=== PATIENT | female | born 1940 | race Caucasian/White ===

== ENCOUNTER → 2017-03-29 | Outpatient (REF) | payer MEDICARE ==
[2017-03-29 12:51] LABS: BASO % 0.5 % (0.0-1.0); EOS # 0.1 K/mm3 (0.0-0.50); EOS % 0.9 % (0.0-3.0); LARGE UNSTAINED CELL # 0.1 K/mm3 (0.0-0.4); LARGE UNSTAINED CELL % 1.2 % (0.0-4.0); LYMPH # 2.5 K/mm3 (1.5-4.5); LYMPH % 26.2 % (24.0-44.0); MEAN CORPUSCULAR HEMOGLOBIN 33.4 pg (27.0-33.0); MEAN CORPUSCULAR VOLUME 101.2 fl (80.0-96.0); MONO # 0.4 K/mm3 (0.0-0.8); MONO % 4.1 % (0.0-5.0); NEUTROPHILS % 67.1 % (36.0-66.0); PLATELET COUNT, AUTOMATED 228 k/mm3 (150-450); RED CELL DISTRIBUTION WIDTH 12.9 % (11.5-14.5)
[2017-03-29 13:11] LABS: FOLATE > 24.0 NG/ML (>5.4); VITAMIN B12 LEVEL 1432 PG/ML (247-911)
[2017-03-29 13:20] LABS: ALBUMIN 4.1 GM/DL (3.2-5.2); ALBUMIN/GLOBULIN RATIO 1.28 (1.00-1.93); ALKALINE PHOSPHATASE 60 U/L (45-117); ALT/SGPT 9 U/L (12-78); ANION GAP 10 MEQ/L (8-16); AST/SGOT 22 U/L (15-37); BILIRUBIN,TOTAL 0.5 MG/DL (0.2-1.0); BLOOD UREA NITROGEN 11 MG/DL (7-18); CALCIUM LEVEL 8.5 MG/DL (8.8-10.2); CARBON DIOXIDE LEVEL 28 MEQ/L (21-32); CHLORIDE LEVEL 105 MEQ/L (98-107); GLOMERULAR FILTRATION RATE > 60.0 (>39); GLUCOSE, FASTING 109 MG/DL (83-110); POTASSIUM SERUM 4.2 MEQ/L (3.5-5.1); SODIUM LEVEL 143 MEQ/L (136-145); TOTAL PROTEIN 7.3 GM/DL (6.4-8.2)
[2017-04-02 00:07] LABS: VITAMIN E LEVEL 15.9 mg/L (6.5-21.5)
== END ==
LOC: M LABNEURO 12:12
PROVIDERS: ATTEND Psychiatry & Neurology Neurology
DX: R51 Headache (principal); M54.5 Low back pain

== ENCOUNTER → 2019-03-06 | Outpatient (CLI) | payer MEDICARE ==
--- NOTE | 2019-03-15 01:47 | ECWPNPC ---
PATIENT NAME: NANCY FENTON : 1940 GENDER: FEMALE VISIT DATE: 03/06/2019 DISCHARGE DATE: 03/06/19 1141 VISIT LOCKED DATE TIME: PHYSICIAN: GINA ERNST MD RESOURCE: GINA ERNST MD REASON FOR APPOINTMENT 1. LBP HISTORY OF PRESENT ILLNESS PAIN SCREENING: PT IS A 78 YEAR OLD FEMALE WHO PRESENTS FOR CHRONIC BACK PAIN AND THORACIC PAIN. THE PAIN HAS BEEN ON GOING FOR SEVERAL YEARS. SHE HAS NOT HISTORY OF TRAUMA. TODAY MOST OF HER PAIN IS IN HER LOWER BACK. THE PAIN IS DESCRIBED PULLING AND ACHING. THE PAIN IS WORSE WITH MOVEMENT, WHERE SHE FEELS A PULLING SENSATION IN HER LOWER PAIN. HER PAIN IS 8-9/10 THAT IS MADE WORSE WITH MOVEMENT. SHE HAS TRIED PT IN THE [place]. SHE CURRENTLY USE BENGAY AND PERCOCET TO CONTROL HER PAIN. THERE IS NO RADIATION OF HER SYMPTOMS. SHE ADMITS TO DIFFICULTY WALKING DUE TO HER PAIN AND HISTORY OF PARKINSON.SHE DENIES ANY RESENT ILLNESS. DENIES AN LOSS OF BOWEL BLADDER DYSFUNTION. NO UNEXPLAINED WEIGHT LOSS. PATIENT HAS A COMPLAINT OF ACUTE OR CHRONIC PAIN :YES FALL RISK SCREENING: SCREENING :NO FALLS REPORTED IN THE LAST YEAR CURRENT MEDICATIONS TAKING MULTIVITAMIN ADULTS - TABLET DIRECTED ORALLY TAKING VITAMIN C 500 MG CAPSULE DIRECTED ORALLY TAKING VITAMIN D 1000 UNIT TABLET 1 TABLET ORALLY ONCE A DAY TAKING NORTRIPTYLINE HCL 10 MG CAPSULE 1 CAPSULE ORALLY ONCE A DAY TAKING NORTRIPTYLINE HCL 25 MG CAPSULE 1 CAPSULE ORALLY BEFORE BEDTIME TAKING PRIMIDONE 50 MG TABLET DIRECTED ORALLY TAKING LASIX 40 MG TABLET 1 TABLET ORALLY ONCE A DAY TAKING HYDRALAZINE HCL 10 MG TABLET 1 TABLET WITH FOOD ORALLY FOUR TIMES A DAY TAKING LOSARTAN POTASSIUM 100 MG TABLET 1 TABLET ORALLY ONCE A DAY TAKING ROPINIROLE HCL 2 MG TABLET 1 TABLET 1 TO 3 HOURS BEFORE BEDTIME ORALLY ONCE A DAY TAKING METOPROLOL TARTRATE 100 MG TABLET 1 TABLET WITH FOOD ORALLY TWICE A DAY TAKING WARFARIN SODIUM 5 MG TABLET 1 TABLET ORALLY ONCE A DAY TAKING RANITIDINE HCL 300 MG CAPSULE 1 CAPSULE ORALLY ONCE A DAY TAKING AMLODIPINE BESYLATE 10 MG TABLET 1 TABLET ORALLY ONCE A DAY TAKING ATORVASTATIN CALCIUM 10 MG TABLET 1 TABLET ORALLY ONCE A DAY TAKING CARBIDOPA-LEVODOPA 10-100 MG TABLET 1 TABLET ORALLY THREE TIMES A DAY TAKING NEUPRO 2 MG/24HR PATCH 24 HOUR 1 PATCH TO SKIN TRANSDERMAL ONCE A DAY TAKING TRIHEXYPHENIDYL HCL 2 MG TABLET 1 TABLET ORALLY TWICE A DAY TAKING KLOR-CON 10 10 MEQ TABLET EXTENDED RELEASE 1 TABLET WITH FOOD ORALLY TWICE A DAY MEDICATION LIST REVIEWED AND RECONCILED WITH THE PATIENT PAST MEDICAL HISTORY HTN A FIB PARKINSONISM CHRONIC LBP CHRONIC NECK PAIN ALLERGIES NAPROXEN: RASH - ALLERGY PREVACID: DON'T REMEMBER ENALOPRIL: DON'T REMEMBER NIACIN: DON'T REMEMBER AVELUX: DON'T REMEMBER LANSOPRAZOLE: DON'T REMEMBER PCN, SULFA: DON'T REMEMBER ROCEPHIN: DON'T REMEMBER SURGICAL HISTORY TONSILLECTOMY OVARIAN CYSTS REMOVED APPENDECTOMY HYSTERECTOMY TUMOR ON RIGHT KNEE REMOVED LEFT WRIST FX REPAIR FAMILY HISTORY FATHER: 62 YRS, DIAGNOSED WITH HYPERTENSION, HEART DISEASE MOTHER: 80 YRS, CANCER 2 BROTHER(S) , 2 SISTER(S) . SISTER BRAIN TUMOR @ 23 Y/O. SOCIAL HISTORY GENERAL: TOBACCO USE ARE YOU A:NONSMOKER PAIN CLINIC PFS, CLERGY, PUBLIC HEALTH REFERRALS HAS THE PATIENT BEEN EDUCATED REGARDING HIS/HER PLAN OF CARE?YES HAS THE PATIENT BEEN EDUCATED REGARDING PAIN, THE RISK FOR PAIN, THE IMPORTANCE OF EFFECTIVE PAIN MANAGEMENT, AND THE PAIN ASSESSMENT PROCESS?YES ADVANCE DIRECTIVE ADVANCE DIRECTIVE DISCUSSED WITH PATIENT:YES TAMIKO HONG DAUGHTER [phone] [employer] [id number] YAZDANISM LANGUAGE LANGUAGES SPOKEN:MARSHALLESE LEARNING BARRIERS / SPECIAL NEEDS BARRIERS TO LEARNING?NO HEARING IMPAIRED?NO VISION IMPAIRED?YES :CORRECTIVE LENSES COGNITIVELY IMPAIRED?NO READINESS TO LEARN?YES LEARNING PREFERENCES?NO LEARNING CAPABILITIES PRESENT?YES EMOTIONAL BARRIERS?NO SPECIAL DEVICES?YES :CANE HOSPITALIZATION/MAJOR DIAGNOSTIC PROCEDURE FELL HIT HEAD GOT DIZZY SURGERY REVIEW OF SYSTEMS REVIEWED BY: PROVIDER: . CONSTITUTIONAL: ANY CHANGE IN YOUR MEDICAL CONDITION? NO . CHILLS NO . FEVER NO . INFECTION: DO YOU HAVE NEW INFECTIONS? NO . DO YOU HAVE HISTORY OF MRSA? NO . MUSCULOSKELETAL: ANY NEW PATTERNS OF PAIN OR NUMBNESS? NO . SYTEMIC LUPUS NO . GASTROENTEROLOGY: ANY NEW CHANGE IN BOWEL CONTROL? NO . BARRETTS ESOPHAGUS NO . CIRRHOSIS NO . HEPATITIS NO . LIVER FAILURE NO . ACID REFLUX NO . UNEXPLAINED WEIGHT LOSS NO . GENITOURINARY: ANY NEW CHANGE IN BLADDER CONTROL? YES, FREQUENCY, OFTEN CAN'T MAKE IT TO THE TOILET IN TIME . IS THERE A CHANCE YOU COULD BE ? NO . HEMATOLOGY/LYMPH: DO YOU TAKE ANY BLOOD THINNERS? (FOR EXAMPLE- COUMADIN, PLAVIX, AGGRENOX, PLATEL, PRADAXA, OR XARELTO) YES, WARFARIN . WHEN WAS YOUR LAST DOSE? DATE: TIME: . LOW PLATELET COUNT NO . SICKLE CELL DISEASE NO . VON WILLIEBRANDS NO . FACTOR V LEIDEN NO . THALLASEMIA NO . ANEMIA NO . EASY BRUISING NO . NEUROLOGY: HAVE YOU FALLEN IN THE PAST 12 MONTHS? YES, FELL 02/06/19 FROM DIZZINESS, PT WAS TAKEN TO [facility] FOR OBSERVATION . ANY NEW EXTREMITY NUMBNESS OR WEAKNESS? YES, RIGHT HAD/WRIST WEAKNESS . HEAD INJURY NO . DEMENTIA NO, PARKINSONISM . CEREBRAL PALSY NO . MULTIPLE SCLEROSIS NO . DIZZINESS NO . HEADACHE NO . STROKES NO . VERTIGO NO . CARDIOLOGY: DO YOU HAVE A PACEMAKER OR DEFIBRILLATOR? NO, A-FIB ON WARFARIN . ANGINA NO . HEART ATTACK NO . HEART SURGERY NO . CONGESTIVE HEART FAILURE/FLUID OVERLOAD NO . CHEST PAIN NO . HIGH BLOOD PRESSURE NO . IRREGULAR HEART BEAT NO . RESPIRATORY: HAVE YOU BEEN SICK IN THE PAST WEEK? NO . FEVER NO . FLU LIKE SYMPTOMS? NO . CPAP NO . BYPAP NO . ASTHMA NO . EMPHYSEMA NO . CHRONIC LUNG DISEASES NO . SHORTNESS OF BREATH ON EXERTION NO . COUGH NO . SNORING NO . INTEGUMENTARY: DO YOU HAVE ANY RASHES OR OPEN SORES? NO . ALLERGIC/IMMUNO: ARE YOU ALLERGIC TO IV DYE? NO . ANY NEW ALLERGIES? NO . PSYCHIATRIC: DO YOU HAVE THOUGHTS OF HURTING YOURSELF OR SOMEONE ELSE? NO . ARE YOU ABUSED, NEGLECTED, OR IN AN UNSAFE ENVIRONMENT? NO . ENDOCRINOLOGY: ARE YOU DIABETIC? NO . THYROID DISORDER NO . OTHER: DO YOU NEED ANY PRESCRIPTIONS? YES, TO DISCUSS . IF YES, PLEASE LIST: ____ . ANY NEW PROBLEMS WITH YOUR MEDICATIONS? NO . WHEN DID YOU LAST EAT? ____ . WHEN DID YOU LAST DRINK? ____ . WHAT DID YOU LAST DRINK? ____ . NAME OF PERSON DRIVING YOU HOME? ____ . DO YOU HAVE ANY OTHER QUESTIONS OR CONCERNS NO . VITAL SIGNS WT 179.6 LBS, HT 54 IN, BMI 43.30 INDEX, BP 139/76 MM HG, HR 82 /MIN, RR 18 /MIN, TEMP 97.1 F, OXYGEN SAT % 98%, NA INITIALS AW 1019, REVIEWED BY: EM. EXAMINATION GENERAL EXAMINATION: GENERALNO ACUTE DISTRESS, WELL NOURISHED AND HYDRATED, ELDERLY FEMALE . PSYCHAPPROPRIATE MOOD AND AFFECT . HEENT:HEAD IS ATRAUMATIC, NECK IS SUPPLE, . NECK:NECK IS SUPPLE. LUNGS:CLEAR TO AUSCULTATION BILATERALLY, NO WHEEZES, RHONCHI, RALES . HEART:NO MURMURS, REGULAR RATE AND RHYTHM . MUSCULOSKELETAL:MUSCLE STRENGTH TESTING 5/5 BILATERAL, TENDERNESS NOTED ON MIDDLE OF PATIENT THORACIC SPINE, TENDERNESS IS ALSO NOTED IN PATIENT LUMBAR SPINE (WORSE THAN HER THORACIC PAIN), NO DEFORMITIES, NO BRUISING, NO SIGNS OF TRAUMA, SHUFFLING GAIT . EXTREMITIES:NO CLUBBING, NO EDEMA, NO CYANOSIS . 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 THERE ARE CONSPICUOS OSTEOARTHRITIC CHANGES IN THE FACET JOINTS AT MULTIPLE LEVELS PARTICULARLY ON THE LEFT AT L5-S1 AND BILATERALLY AT L3-4 ADN L4-5. THERE IS NO INTERVAL CHANGE WHEN COMPARED WITH THE PRIOR STUDY. CT L-SPINE WITHOUT CONTRAST (12/26/18)NO ACUTE FRACTURE OD SUBLUXATION1.2 CM LYTIC CHANGE LEFT ASPECT L5 VERTEBRAL BODY, THIS MAY BE DUE TO A SMALL CYST BUT NEOPLASTIC CHANGE IS NOT ENTIRELY EXCLUDED GIVEN PATIENTS AGE. FUSIFORM ANEURYSMAL CHANGE OF THE AORTA TO 2.4 CM NOTED WITH MODERATE ATHEROSCLEROSISXRAY LUMBAR SPINE (07/03/2014)OSTEOPENIA. NO ACUTE FRACTURE, SUBLUXATION, OR DESTRUCTIVE OSSEOUS LESION IDENTIFIED. THERE ARE MULTIPLE LEVELS OF MILD TO MODERATE OSTEOARTHRITIS. SEVERE FACET ARTHROPATHY IS PRESENT BILATERALLY AT L3-4, L4-5 AND L5-S1. ATHEROSCLEROTIC VASCULAT CALCIFICATIONS ARE PRESENT. ASSESSMENTS MYALGIA - M79.10 (PRIMARY) LOW BACK PAIN - M54.5 OTHER CHRONIC PAIN - G89.29 THORACIC SPINE PAIN - M54.6 TREATMENT MYALGIA CLINICAL NOTES: WE DISCUSSED SEVERAL ISSUES WITH MS. FENTON PAIN MANAGEMENT CASE. WE WILL BEGIN WITH TRIGGER POINT INJECTION AT THE MID LUMBAR AREA. IF THIS FAILS TO AID PATIENT, I WILL CONSIDER FACET BLOCKADE. PATIENT IS CURRENTLY ON COUMADIN AND WILL NEED CLEARANCE TO DISCONTINUE IT PRIOR TO PROCEDURE. THE PATIENT WILL FOLLOW UP WITH IN A FEW DAYS TO WEEKS FOR TRIGGER POINT INJECTION PENDING INSURANCE CLEARANCE. INSTRUCTIONS WERE GIVEN, QUESTIONS WERE ANSWERED, PATIENT REPORTS UNDERSTANDING AND AGREES WITH THE PLAN.. THORACIC SPINE PAIN CLINICAL NOTES: WILL CONSIDER THORACIC MRI IF THIS CONTINUES TO BOTHER PT. . OTHERS NOTES: SACROILIAC JOINT PAIN MATERIAL WAS PRINTED. PROCEDURES 03/06/19 @1115 TRIGGER INJECTION AND SACROILLIAC JOINT INJECTION REVIEWED WITH PT. AND COPY GIVEN TO PT. PT. VERBALIZES AN UNDERSTANDING ARLENE JONES. PROCEDURE CODES FA211 ESTABILISHED PATIENT [facility] FACILITY CHARGE G8427 CURRENT MEDS W/DOSAGES DOCUMENTED G8730 PAIN ASSESS POS TOOL F/U PLAN DOC DISPOSITION & COMMUNICATION ELECTRONICALLY SIGNED BY GINA ERNST MD, MD ON 03/14/2019 AT 12:48 PM EDT DISCLAIMER : THIS IS A VISIT SUMMARY EXTRACTED FROM THE [employer] CHART. IT IS NOT A COPY OF THE [employer] PROGRESS NOTE. MTDD
== END ==
LOC: M PAIN 10:15
PROVIDERS: ATTEND Anesthesiology
DX: M79.10 Myalgia, unspecified site (principal); M54.5 Low back pain; G89.29 Other chronic pain; M54.6 Pain in thoracic spine; I10 Essential (primary) hypertension; I48.91 Unspecified atrial fibrillation; Z88.0 Allergy status to penicillin; Z88.1 Allergy status to other antibiotic agents; Z88.2 Allergy status to sulfonamides; Z88.6 Allergy status to analgesic agent; Z88.8 Allergy status to other drugs, medicaments and biological substances; Z79.01 Long term (current) use of anticoagulants; E66.01 Morbid (severe) obesity due to excess calories; Z68.41 Body mass index [BMI] 40.0-44.9, adult; Z79.899 Other long term (current) drug therapy

== ENCOUNTER → 2019-05-09 | Outpatient (CLI) | payer MEDICARE ==
[~2019-05-09] MED LIST: BUPIVACAINE HCL 0.25% 10 ML VIAL As Ordered ONE; BUPIVACAINE HCL 0.25% 30 ML VIAL As Ordered ONE; NORCO, ANEXSIA 5/325MG TABLET (HYDROcodone/ACETAMINOPHEN) As Ordered ONE; TRIAMCINOLONE ACETONIDE SUSP 40 MG/ML VIAL (J3301) As Ordered ONE
== END ==
LOC: M PAIN 14:15
PROVIDERS: ATTEND Anesthesiology
DX: M79.18 Myalgia, other site (principal); I10 Essential (primary) hypertension; I48.91 Unspecified atrial fibrillation; G20 Parkinson's disease; M54.5 Low back pain; M54.2 Cervicalgia; Z90.49 Acquired absence of other specified parts of digestive tract; Z87.81 Personal history of (healed) traumatic fracture; Z90.710 Acquired absence of both cervix and uterus; Z79.01 Long term (current) use of anticoagulants; Z88.6 Allergy status to analgesic agent; Z88.0 Allergy status to penicillin; Z88.2 Allergy status to sulfonamides; Z88.1 Allergy status to other antibiotic agents; Z88.8 Allergy status to other drugs, medicaments and biological substances
CPT/HCPCS: 20553; J3301

== ENCOUNTER → 2019-05-29 | Outpatient (CLI) | payer MEDICARE ==
--- NOTE | 2019-05-29 23:51 | ECWPNPC ---
PATIENT NAME: NANCY FENTON : 1940 GENDER: FEMALE VISIT DATE: 05/29/2019 DISCHARGE DATE: 05/29/19 1150 VISIT LOCKED DATE TIME: PHYSICIAN: DWIGHT ASHLEY RESOURCE: DWIGHT ASHLEY REASON FOR APPOINTMENT 1. POST TPI HISTORY OF PRESENT ILLNESS HISTORY OF PRESENT ILLNESS: HERE FOR F/U POST PROCEDURE .HAD TPI BILAT. LUMBAR AND THORACIC ON 05/09/19.REPORTING NO IMPROVEMENT POST PROCEDURE.CHIEF AREA OF PAIN IS ACROSS LOW BACK.PAIN RADIATES TO THORACIC REGION.REVIEWED MRI L/S SPINE AND THIS IS SHOWING L/S SPONDYLOSIS.RATING PAIN VAS 8/10.DISCUSSED TREATMENT OPTIONS. PAIN THE PATIENT DESCRIBES THE PAIN... FALL RISK SCREENING: SCREENING :NO FALLS REPORTED IN THE LAST YEAR CURRENT MEDICATIONS TAKING MULTIVITAMIN ADULTS - TABLET DIRECTED ORALLY TAKING VITAMIN C 500 MG CAPSULE DIRECTED ORALLY TAKING VITAMIN D 1000 UNIT TABLET 1 TABLET ORALLY ONCE A DAY TAKING NORTRIPTYLINE HCL 10 MG CAPSULE 1 CAPSULE ORALLY ONCE A DAY TAKING NORTRIPTYLINE HCL 25 MG CAPSULE 1 CAPSULE ORALLY BEFORE BEDTIME TAKING PRIMIDONE 50 MG TABLET DIRECTED ORALLY TAKING LASIX 40 MG TABLET 1 TABLET ORALLY ONCE A DAY TAKING HYDRALAZINE HCL 10 MG TABLET 1 TABLET WITH FOOD ORALLY FOUR TIMES A DAY TAKING LOSARTAN POTASSIUM 100 MG TABLET 1 TABLET ORALLY ONCE A DAY TAKING ROPINIROLE HCL 2 MG TABLET 1 TABLET 1 TO 3 HOURS BEFORE BEDTIME ORALLY ONCE A DAY TAKING METOPROLOL TARTRATE 100 MG TABLET 1 TABLET WITH FOOD ORALLY TWICE A DAY TAKING WARFARIN SODIUM 5 MG TABLET 1 TABLET ORALLY ONCE A DAY TAKING RANITIDINE HCL 300 MG CAPSULE 1 CAPSULE ORALLY ONCE A DAY TAKING AMLODIPINE BESYLATE 10 MG TABLET 1 TABLET ORALLY ONCE A DAY TAKING ATORVASTATIN CALCIUM 10 MG TABLET 1 TABLET ORALLY ONCE A DAY TAKING CARBIDOPA-LEVODOPA 10-100 MG TABLET 1 TABLET ORALLY FOUR TIMES DAILY TAKING KLOR-CON 10 10 MEQ TABLET EXTENDED RELEASE 1 TABLET WITH FOOD ORALLY TWICE A DAY NOT-TAKING NEUPRO 2 MG/24HR PATCH 24 HOUR 1 PATCH TO SKIN TRANSDERMAL ONCE A DAY, NOTES: HAS NOT BEEN USING NOT-TAKING TRIHEXYPHENIDYL HCL 2 MG TABLET 1 TABLET ORALLY TWICE A DAY MEDICATION LIST REVIEWED AND RECONCILED WITH THE PATIENT PAST MEDICAL HISTORY HTN A FIB PARKINSONISM CHRONIC LBP CHRONIC NECK PAIN ALLERGIES NAPROXEN: RASH - ALLERGY PREVACID: DON'T REMEMBER ENALOPRIL: DON'T REMEMBER NIACIN: DON'T REMEMBER AVELUX: DON'T REMEMBER LANSOPRAZOLE: DON'T REMEMBER PCN, SULFA: DON'T REMEMBER ROCEPHIN: DON'T REMEMBER SURGICAL HISTORY TONSILLECTOMY OVARIAN CYSTS REMOVED APPENDECTOMY HYSTERECTOMY TUMOR ON RIGHT KNEE REMOVED LEFT WRIST FX REPAIR FAMILY HISTORY FATHER: 62 YRS, DIAGNOSED WITH HYPERTENSION, UNSPECIFIED HEART DISEASE MOTHER: 80 YRS, OTHER MALIGNANT NEOPLASM OF UNSPECIFIED SITE 2 BROTHER(S) , 2 SISTER(S) . SISTER BRAIN TUMOR @ 23 Y/O. SOCIAL HISTORY GENERAL: TOBACCO USE ARE YOU A:NONSMOKER PAIN CLINIC PFS, CLERGY, PUBLIC HEALTH REFERRALS HAS THE PATIENT BEEN EDUCATED REGARDING HIS/HER PLAN OF CARE?YES HAS THE PATIENT BEEN EDUCATED REGARDING PAIN, THE RISK FOR PAIN, THE IMPORTANCE OF EFFECTIVE PAIN MANAGEMENT, AND THE PAIN ASSESSMENT PROCESS?YES LATEX QUESTIONNAIRE LATEX ALLERGY : HAVE YOU EVER DEVELOPED ANY TYPE OF REACTION AFTER HANDLING LATEX PRODUCTS SUCH RUBBER GLOVES, CONDOMS, DIAPHRAGMS, BALLOONS, SOCKS, OR UNDERWEAR?NO LATEX ALLERGY : HAVE YOU EVER DEVELOPED ANY TYPE OF REACTION DURING OR AFTER DENTAL APPOINTMENT, VAGINAL/RECTAL EXAMINATION, SURGICAL PROCEDURE, OR ANY OTHER EXPOSURE?NO LATEX RISK : HAVE YOU EVER HAD ANY DIFFICULTY BREATHING OR HIVES AFTER EATING OR HANDLING ANY FRUITS, OR VEGETABLES; SUCH KIWI, BANANAS, STONE FRUITS, OR CHESTNUTSNO LATEX RISK : DO YOU HAVE A PREVIOUS PERSONAL HISTORY OF MORE THAN NINE SURGERIES, SPINA BIFIDA, OR REPEATED CATHERIZATIONS? NO LATEX RISK : ARE YOU FREQUENTLY EXPOSED TO LATEX PRODUCTS IN YOUR OCCUPATION?NO DATE ASKED : 05/29/2019 ADVANCE DIRECTIVE ADVANCE DIRECTIVE DISCUSSED WITH PATIENT:YES TAMIKO HONG DAUGHTER [phone] [id number] EPISCOPALIAN LANGUAGE LANGUAGES SPOKEN:[place] RECREATIONAL DRUG USE DRUG USE?NO LEARNING BARRIERS / SPECIAL NEEDS BARRIERS TO LEARNING?NO HEARING IMPAIRED?NO VISION IMPAIRED?YES COGNITIVELY IMPAIRED?NO :CORRECTIVE LENSES READINESS TO LEARN?YES LEARNING PREFERENCES?NO LEARNING CAPABILITIES PRESENT?YES EMOTIONAL BARRIERS?NO SPECIAL DEVICES?YES :ROSIE REVIEWED WITH PT 05/09/19 [id number] NLJREVIEWED WITH PATIENT 05/29/19 1116 JS. HOSPITALIZATION/MAJOR DIAGNOSTIC PROCEDURE FELL HIT HEAD GOT DIZZY SURGERY REVIEW OF SYSTEMS REVIEWED BY: PROVIDER: DWIGHT CHRIS . CONSTITUTIONAL: ANY CHANGE IN YOUR MEDICAL CONDITION? NO . CHILLS NO . FEVER NO . INFECTION: DO YOU HAVE NEW INFECTIONS? NO . DO YOU HAVE HISTORY OF MRSA? NO . MUSCULOSKELETAL: ANY NEW PATTERNS OF PAIN OR NUMBNESS? NO . GASTROENTEROLOGY: ANY NEW CHANGE IN BOWEL CONTROL? NO . GENITOURINARY: ANY NEW CHANGE IN BLADDER CONTROL? NO . IS THERE A CHANCE YOU COULD BE ? NO . HEMATOLOGY/LYMPH: DO YOU TAKE ANY BLOOD THINNERS? (FOR EXAMPLE- COUMADIN, PLAVIX, AGGRENOX, PLATEL, PRADAXA, OR XARELTO) YES, COUMADIN . WHEN WAS YOUR LAST DOSE? DATE: 05/28/19TIME: 2129 . NEUROLOGY: HAVE YOU FALLEN IN THE PAST 12 MONTHS? YES, STATES PRIOR TO LAST APPOINTMENT, DISCUSSED AT PREVIOUS VISIT . ANY NEW EXTREMITY NUMBNESS OR WEAKNESS? NO . CARDIOLOGY: DO YOU HAVE A PACEMAKER OR DEFIBRILLATOR? NO . RESPIRATORY: HAVE YOU BEEN SICK IN THE PAST WEEK? NO . FEVER NO . FLU LIKE SYMPTOMS? NO . COUGH YES, A COUPLE WEEKS AGO . INTEGUMENTARY: DO YOU HAVE ANY RASHES OR OPEN SORES? NO . ALLERGIC/IMMUNO: ARE YOU ALLERGIC TO IV DYE? NO . ANY NEW ALLERGIES? NO . PSYCHIATRIC: DO YOU HAVE THOUGHTS OF HURTING YOURSELF OR SOMEONE ELSE? NO . ARE YOU ABUSED, NEGLECTED, OR IN AN UNSAFE ENVIRONMENT? NO . ENDOCRINOLOGY: ARE YOU DIABETIC? NO . OTHER: DO YOU NEED ANY PRESCRIPTIONS? YES . IF YES, PLEASE LIST: ____PERCOCET, NOT CURRENTLY PRESCRIBED BY THE PAIN CENTER . ANY NEW PROBLEMS WITH YOUR MEDICATIONS? NO . WHEN DID YOU LAST EAT? ____ . WHEN DID YOU LAST DRINK? ____ . WHAT DID YOU LAST DRINK? ____ . NAME OF PERSON DRIVING YOU HOME? ____ . DO YOU HAVE ANY OTHER QUESTIONS OR CONCERNS GOING TO HAVE THE FLU VACCINE SOON . VITAL SIGNS WT 174.0 LBS, HT 54 IN, BMI 41.95 INDEX, BP 124/63 MM HG, HR 70 /MIN, RR 18 /MIN, TEMP 97.5 F, OXYGEN SAT % 96%, SAFE IN ENV? (Y/N) YES, NA INITIALS HI 11:07, REVIEWED BY: JHONY. EXAMINATION GENERAL EXAMINATION: GENERAL ALERT,NO DISTRESS . PSYCH AFFECT NORMAL . LUNGS: LUNG SOUNDS ARE CLEAR . HEART: HEART RATE REGULAR . MUSCULOSKELETAL: MST 5/5 MILD WEAKNESS AND TREMOR AT REST RIGHT LEG. LUMBAR SACRAL SPINE TENDERNESS BILAT. SIJ . DIAGNOSTIC TESTS REVIEWEDMRI L/S SPINE-04/12/17. ASSESSMENTS SACROILIITIS - M46.1 (PRIMARY) TREATMENT SACROILIITIS NOTES: BILAT SIJ--HOLD COUMADIN 5 DAYS PRE PROCEDURE-PT/INR AM OF PROCEDURE. PREVENTIVE MEDICINE PAIN CLINIC TEACHING: PROCEDURE TEACHING PRINTED AND REVIEWED INFORMATION ON SACROILIAC JOINT INJECTION WITH PATIENT. ALSO REVIEWED PRE-PROCEDURE INSTRUCTIONS. INSTRUCTED PATIENT TO HOLD COUMADIN FOR 5 FULL DAYS PRIOR TO THE PROCEDURE AND TO HAVE A PT/INR PERFORMED THE MORNING OF THE PROCEDURE. ORDER GIVEN TO THE PATIENT FOR THE PT/INR. PATIENT VERBALIZED AN UNDERSTANDING. ANTONIO MAY 05/29/2019 11:53:19 AM > . PROCEDURE CODES FA211 ESTABILISHED PATIENT [facility] FACILITY CHARGE DISPOSITION & COMMUNICATION FOLLOW UP POST (REASON: BILAT SIJ) ELECTRONICALLY SIGNED BY DOT PEREZ ON 05/29/2019 AT 01:57 PM EDT DISCLAIMER : THIS IS A VISIT SUMMARY EXTRACTED FROM THE [employer] CHART. IT IS NOT A COPY OF THE [employer] PROGRESS NOTE. GLORIA
== END ==
LOC: M PAIN 11:00
PROVIDERS: ATTEND Nurse Practitioner Family
DX: M46.1 Sacroiliitis, not elsewhere classified (principal); I10 Essential (primary) hypertension; I48.91 Unspecified atrial fibrillation; G20 Parkinson's disease; M54.5 Low back pain; M54.2 Cervicalgia; Z79.01 Long term (current) use of anticoagulants; Z79.899 Other long term (current) drug therapy; Z88.0 Allergy status to penicillin; Z88.1 Allergy status to other antibiotic agents; Z88.5 Allergy status to narcotic agent; Z88.8 Allergy status to other drugs, medicaments and biological substances